=== PATIENT | male | born 1955 | race Caucasian/White ===

== ENCOUNTER 2020-10-04 08:45 | Emergency (ER) | payer OTHER, MEDICAID ==
[~2020-10-04] VITALS: Ht 180.3 cm; Wt 99.8 kg
[2020-10-04 08:51] VITALS: Ht 180.3 cm; Wt 99.8 kg
[2020-10-04 09:26] LABS: BASOPHIL % 0.7 % (0.2-1.5)
[2020-10-04 09:27] LABS: PLATELET COUNT 120 x10^3mcL (152-348); RED CELL DISTRIBUTION WIDTH 14.8 % (12.1-16.2)
[2020-10-04 09:44] LABS: CALCIUM 9.8 mg/dL (8.5-10.1); CHLORIDE SERUM 102 mmol/L (98-107); CREATININE SERUM 1.1 mg/dL (0.7-1.3); GFR1 > 60 mL/min; GLUCOSE SERUM 202 mg/dL (74-106); SODIUM SERUM 141 mmol/L (136-145)
[2020-10-04 09:51] LABS: ALKALINE PHOSPHATASE 78 U/L (46-116); ALT/SGPT 49 U/L (16-63); AST/SGOT 43 U/L (15-37); BILIRUBIN TOTAL 0.7 mg/dL (0.20-1.00)
[2020-10-04 09:52] LABS: TOTAL PROTEIN, SERUM 8.3 g/dL (6.4-8.2)
[2020-10-04 10:01] LABS: UA SPECIFIC GRAVITY >=1.030 (1.005-1.035); microscopic required? YES; urine erythrocyte 2+ (NEGATIVE)
[2020-10-04 10:19] LABS: AMPHETAMINE QUAL UR NONE DETECTED (See below)
[2020-10-04 14:28] VITALS: BP 177/105
== END 2020-10-04 14:25 | disposition home or self-care (01) ==
LOC: ED 08:45
PROVIDERS: Emergency Medicine
DX: F10.239 Alcohol dependence with withdrawal, unspecified (principal); R56.9 Unspecified convulsions; I10 Essential (primary) hypertension; Z20.822 Contact with and (suspected) exposure to COVID-19; Y90.0 Blood alcohol level of less than 20 mg/100 ml
CPT/HCPCS: G0480; J1953; U0003